=== PATIENT | female | born 1955 | race African-American/Black ===

== ENCOUNTER 2018-03-02 14:56 | Outpatient (CLI) | payer OTHER ==
[2018-03-02 16:06] LABS: Anion Gap 15 mmol/L (10-20); BUN (Urea Nitrogen) 18 mg/dL (9.8-20.1); Calc. Creatinine Clearance 0 mL/min (70-130); Calcium 10.1 mg/dL (7.8-10.44); Carbon Dioxide 24 mmol/L (23-31); Chloride 101 mmol/L (98-107); Estimated GFR-MDRD 67; Glucose 112 mg/dL (80-115); Potassium 4.1 mmol/L (3.5-5.1); Sodium 136 mmol/L (136-145)
--- NOTE | 2018-03-03 16:15 | EKG ---
Test Reason : Blood Pressure : / mmHG Vent. Rate : 077 BPM Atrial Rate : 077 BPM P-R Int : 166 ms QRS Dur : 080 ms QT Int : 382 ms P-R-T Axes : 063 -06 064 degrees QTc Int : 432 ms Normal sinus rhythm Moderate voltage criteria for LVH, may be normal variant Cannot rule out Anterior infarct , age undetermined Abnormal ECG Confirmed by FIORDALIZA BENNETT ([id number]) on 03/03/2018 4:14:32 PM Referred By: MARQUITA Confirmed By:FIORDALIZA BENNETT
== END 2018-03-02 14:57 | disposition home or self-care (01) ==
LOC: LABBT 14:56
PROVIDERS: ATTEND Neurological Surgery
DX: Z01.818 Encounter for other preprocedural examination (principal); M54.16 Radiculopathy, lumbar region
CPT/HCPCS: 80048; 93005; 93010

== ENCOUNTER 2018-03-10 08:02 | Day surgery (SDC) | payer OTHER ==
[2018-03-02 15:47] VITALS: BMI 26.6
--- NOTE | 2018-03-09 21:15 | HP ---
HISTORY OF PRESENT ILLNESS: Ms. Ratliff is a very pleasant 62-year-old woman, who presenting for by referral from Dr. Holloway and Dr. Bolden for exquisitely painful right lower extremity L4 and at times L5 radiculopathy since 09/2017. She has had 2 epidural steroid injections which lasted roughly 1-2 w eeks each time and was referred her. She denies tingling, numbness or weakness. This is in the sett ing of an MRI from [facility] that reveals moderate to severe L4-L5 central canal stenosis and donovan ateral neural foraminal narrowing. Additionally, the right L5 neural foramen is narrowed to the same degree. PAST MEDICAL HISTORY: Unassessed. CURRENT MEDICATIONS: Unassessed. ALLERGIES: No known drug allergies. PHYSICAL EXAMINATION: Patient is alert and oriented x3. Gait is severely antalgic. Lower extremity motor exam is normal. ASSESSMENT: Lumbar radiculopathy. PLAN: Dr. Matute met with the patient, reviewed imaging and advocated for right L4-L5 decompression a nd foraminotomy. He explained to the patient the risks, benefits, and alternatives of the procedure. The patient expressed understanding and would like to move forward with surgery as discussed. I do believe, the patient is mentally competent and capable of making medical decisions for herself and w e will move forward with surgery as planned. Landon Laguerre PA-C dictating for Dr. Matute.
[2018-03-10] MEDS ORDERED: CEFAZOLIN/Water 2 GM/20 ML SYRINGE ONE ×2 (08:10→14:23)
[2018-03-10] MEDS ORDERED: Bupivacaine HCl 0.5%/Epinephrine 1:200,000/PF 30 ml Vial ONE (08:33)
[2018-03-10] MEDS ORDERED: Thrombin 5000 UNITS/5 ML VIAL ONE (08:33)
[2018-03-10] MEDS ORDERED: Midazolam HCl 2 mg/2 ml Vial ONE (08:47)
[2018-03-10] MEDS ORDERED: Fentanyl 250 MCG/5 ML VIAL ONE (08:54)
[2018-03-10] MEDS ORDERED: Ondansetron PF 4 MG/2 ML Vial ONE ×2 (10:19→15:38)
[2018-03-10] MEDS ORDERED: Fentanyl 100 MCG/2 ML VIAL ONE (11:14)
--- NOTE | 2018-03-10 11:57 | OP ---
DATE OF PROCEDURE: 03/10/2018 SURGEON: Lokesh Matute M.D. BAND EDGER: Valerio Laguerre PA-C. INDICATION: Pain. DIAGNOSIS: Lumbar radiculopathy. PROCEDURE: L4 decompression, L5 decompression, L4 foraminotomy and L5 foraminotomy on the right. ANESTHESIA: General. TECHNIQUE: The patient was brought into the operating room and placed under general anesthesia. She was flipped from a supine or prone position on the operating room table. A linear incision was plan deepak over the L4-5 segments. After prepping and draping and after an appropriate operative pause, the incision was created. The soft tissues were swept right of midline. A self-retaining retractor was placed in the wound for optimal exposure. After confirming the appropriate levels with C-arm fluoro scopy, a high-speed cutting drill bit as well as 2, 3 and 4 mm Kerrisons used to perform a complete l aminectomy of L4 on the right as well as a hemilaminectomy along the superior aspect of L5 on the rig ht. The exiting L4 and L5 nerve roots were identified where foraminotomies were performed over them until they were decompressed. The wound was then irrigated. Hemostasis was maintained throughout. The wound was then closed in anatomic layers and a pressure dressing was applied. There were no know n procedural complications.
[2018-03-10] MEDS ORDERED: Cyclobenzaprine 10 MG TAB ONE (12:01)
[2018-03-10] MEDS ORDERED: HYDROcodone/Acetaminophen 5/325 mg Tablet ONE (12:33)
[2018-03-10] MEDS ORDERED: Glycopyrrolate 0.2 MG/ML 5 ML SYRINGE ONE (15:38)
[2018-03-10] MEDS ORDERED: Dexamethasone 20 MG/5 ML VIAL ONE (15:38)
[2018-03-10] MEDS ORDERED: Lidocaine 1% PF 5 ML VIAL ONE (15:38)
[2018-03-10] MEDS ORDERED: PROPOFOL 200 MG/20 ML VIAL ONE (15:38)
== END 2018-03-10 14:50 | disposition home or self-care (01) ==
LOC: SDC 08:02
PROVIDERS: ATTEND Neurological Surgery
PROC: 01NB0ZZ Release Lumbar Nerve, Open Approach (ICD-10-PCS; principal; 2018-03-10)
DX: M54.16 Radiculopathy, lumbar region (principal); M48.061 Spinal stenosis, lumbar region without neurogenic claudication; Z79.84 Long term (current) use of oral hypoglycemic drugs; Z79.899 Other long term (current) drug therapy
CPT/HCPCS: 76001; 96374; J0670; J1100; J2001; J2250; J2405; J2704; J3010

== ENCOUNTER 2018-06-24 07:58 | Outpatient (CLI) | payer OTHER ==
--- NOTE | 2018-06-24 10:02 | CT ---
CT LUMBAR SPINE NONCONTRAST: History: Low back pain. Right leg radiculopathy. FINDINGS: Vertebral body height and alignment are maintained. Diverticula arise from the partially visualized s igmoid. T12-L1, L1-2, L2-3: Mild osteophytosis. Central canal and neural foramina are patent. L3-4: Mild posterior disc bulge. Osteophytosis of the facets. Circumferential degenerative changes. M ild stenosis of the central canal. Neural foramina remain patent. L4-5: Prominent posterior disc bulge. Osteophytosis of the facets. Severe stenosis of the central can al and each neural foramen, right greater than left. L5-S1: Diffuse posterior disc bulge. Thecal sac remains patent. Osteophytosis of the facets. Severe b ilateral foraminal stenoses. IMPRESSION: Prominent degenerative changes lower lumbar spine including central canal stenosis most severe at the L4-5 level and severe bilateral foraminal stenoses at the lowest two levels. POS: ABDI
== END 2018-06-24 07:59 | disposition home or self-care (01) ==
LOC: TBSIIMAG 07:58
PROVIDERS: ATTEND Neurological Surgery
DX: M47.26 Other spondylosis with radiculopathy, lumbar region (principal); M48.061 Spinal stenosis, lumbar region without neurogenic claudication; M99.83 Other biomechanical lesions of lumbar region
CPT/HCPCS: 72131

== ENCOUNTER 2019-07-14 07:15 | Outpatient (CLI) | payer OTHER ==
--- NOTE | 2019-07-14 09:19 | MRI ---
EXAM: MRI of the abdomen without and with contrast COMPARISON: None HISTORY: Acute pancreatitis TECHNIQUE: Multiplanar multi sequence MR images were taken of the abdomen without and with IV contras t. An MRCP was performed. FINDINGS: Liver: No focal liver lesions or intrahepatic ductal dilatation. There is dropout on out of phase felicia ges in the liver consistent with fatty infiltration. Gallbladder: Absent Common bile duct: Normal caliber without filling defects Adrenal glands: Unremarkable. Kidneys: No hydronephrosis or focal renal lesions. Spleen: Unremarkable. Pancreas: Unremarkable. Retroperitoneum: No enlarged lymph nodes Bones: No marrow signal abnormality. IMPRESSION: Fatty liver
[2019-07-14] MEDS ORDERED: Gadobenate Dimeglumine 529 MG/1 ML (20ML VIAL) ONE (17:19)
== END 2019-07-14 07:16 | disposition home or self-care (01) ==
LOC: BICMRI 07:15
PROVIDERS: ATTEND Physician Assistant Medical
DX: K85.90 Acute pancreatitis without necrosis or infection, unspecified (principal); D64.9 Anemia, unspecified; K76.0 Fatty (change of) liver, not elsewhere classified
CPT/HCPCS: 74183; A9577

== ENCOUNTER 2021-10-17 08:03 | Outpatient (CLI) | payer MEDICARE | END 2021-10-17 08:04 | disposition home or self-care (01) | LOC: BICMAMMO 08:03 | PROVIDERS: ATTEND Family Medicine | DX: Z12.31 Encounter for screening mammogram for malignant neoplasm of breast (principal); Z13.820 Encounter for screening for osteoporosis; N95.9 Unspecified menopausal and perimenopausal disorder; Z91.89 Other specified personal risk factors, not elsewhere classified | CPT/HCPCS: 77063; 77067; 77080 ==

== ENCOUNTER 2022-07-21 10:20 | Outpatient (CLI) | payer OTHER | END 2022-07-21 10:21 | disposition home or self-care (01) | LOC: BICRAD 10:20 | PROVIDERS: ATTEND Family Medicine | DX: D16.4 Benign neoplasm of bones of skull and face (principal); M54.50 Low back pain, unspecified; M47.816 Spondylosis without myelopathy or radiculopathy, lumbar region; M47.817 Spondylosis without myelopathy or radiculopathy, lumbosacral region | CPT/HCPCS: 70250; 72100 ==

== ENCOUNTER 2023-01-07 10:07 | Outpatient (CLI) | payer OTHER | END 2023-01-07 10:08 | disposition home or self-care (01) | LOC: BICMAMMO 10:07 | PROVIDERS: ATTEND Family Medicine | DX: Z12.31 Encounter for screening mammogram for malignant neoplasm of breast (principal); Z91.89 Other specified personal risk factors, not elsewhere classified | CPT/HCPCS: 77063; 77067 ==

== ENCOUNTER 2024-01-29 12:21 | Outpatient (CLI) | payer OTHER | END 2024-01-29 12:22 | disposition home or self-care (01) | LOC: BICMAMMO 12:21 | PROVIDERS: ATTEND Family Medicine | DX: Z12.31 Encounter for screening mammogram for malignant neoplasm of breast (principal); Z91.89 Other specified personal risk factors, not elsewhere classified | CPT/HCPCS: 77063; 77067 ==

== ENCOUNTER 2025-09-08 11:31 | Outpatient (CLI) | payer OTHER | END 2025-09-08 11:32 | disposition home or self-care (01) | LOC: BICRAD 11:31 | PROVIDERS: ATTEND Family Medicine | DX: R05.3 Chronic cough (principal) | CPT/HCPCS: 71046 ==

== ENCOUNTER 2025-10-26 12:29 | Outpatient (CLI) | payer OTHER | END 2025-10-26 12:30 | disposition home or self-care (01) | LOC: BICCT 12:29 | PROVIDERS: ATTEND Family Medicine | DX: R05.3 Chronic cough (principal); J98.59 Other diseases of mediastinum, not elsewhere classified | CPT/HCPCS: 71250 ==